=== PATIENT | female | born 1990 | race Hispanic/Latino ===

== ENCOUNTER 2018-04-28 09:43 | Emergency (ER) | payer SELFPAY ==
[2018-04-28] MEDS ORDERED: Ondansetron PF 4 MG/2 ML Vial ONE (09:58)
[2018-04-28] MEDS ORDERED: Ketorolac Tromethamine 30 MG/ML VIAL ONE (10:00)
[2018-04-28 10:26] LABS: Bilirubin Negative (Negative); Blood, Urine Small (Negative); Clarity Clear (Clear); Glucose, Urine (Dipstick) Negative (Negative); Leukocyte Negative (Negative); Nitrite Negative (Negative); Protein, Urine (Dipstick) 30 mg/dL (Neg-Trace); Urobilinogen 0.2 mg/dL (0.2-1.0); pH, Urine 6.5 (5.0-9.0)
[2018-04-28 10:27] LABS: Pregnancy Test - Urine (BHCG) Negative (Negative)
[2018-04-28 10:28] LABS: Pregu Control Background? CLEAR/WHITE (CLR/WHITE); Pregu Control Bar Appear? YES (CONTROL BAR)
[2018-04-28 10:36] LABS: Bacteria/HPF Rare-Few HPF (None Seen); RBC/HPF 0-3 HPF (0-3); Squamous Epithelial 0-3 HPF (0-3); WBC/HPF 0-3 HPF (0-3)
[2018-04-28 10:37] LABS: Other Microscopic Description NO
[2018-04-28 10:39] LABS: Anion Gap 13 mmol/L (10-20); BUN (Urea Nitrogen) 10 mg/dL (7.0-18.7); Calc. Creatinine Clearance 0 mL/min (70-130); Calcium 9.2 mg/dL (7.8-10.44); Carbon Dioxide 21 mmol/L (22-29); Chloride 107 mmol/L (98-107); Estimated GFR-MDRD Greater than 90; Glucose 133 mg/dL (70-105); Potassium 3.7 mmol/L (3.5-5.1); Sodium 137 mmol/L (136-145)
--- NOTE | 2018-04-28 10:58 | CT ---
CT STONE PROTOCOL: HISTORY: Left flank pain. FINDINGS: Absence of oral and IV contrast reduces the sensitivity of the exam, particularly for evaluation of s olid organs involved. The lung bases are clear. The patient is post cholecystectomy. No free air or free fluid is seen in the abdomen or pelvis. No calculi are seen in the kidneys, right ureter, or the urinary bladder. There is a 3 mm calculus i n the left ureteropelvic junction with mild left-sided hydronephrosis. Uterus and ovaries are present. A normal-appearing appendix is noted. There is no evidence of aneur ysmal dilatation of the abdominal aorta. No acute osseous abnormalities are seen. IMPRESSION: A 3 mm left ureteropelvic junction calculus with mild hydronephrosis. POS: C
== END 2018-04-28 11:07 | disposition home or self-care (01) ==
LOC: NAV ERS 09:43
DX: N13.2 Hydronephrosis with renal and ureteral calculous obstruction (principal); Z87.891 Personal history of nicotine dependence
CPT/HCPCS: 51701; 74176; 80048; 81003; 81015; 81025; 96361; 96374; 96375; A4353; J1885; J2405

== ENCOUNTER 2018-12-28 12:56 | Emergency (ER) | payer SELFPAY | END 2018-12-28 13:24 | disposition home or self-care (01) | LOC: NAV ERS 12:56 | DX: K02.9 Dental caries, unspecified (principal); F17.210 Nicotine dependence, cigarettes, uncomplicated; Z87.442 Personal history of urinary calculi | CPT/HCPCS: 99281 ==

== ENCOUNTER 2019-08-04 13:57 | Emergency (ER) | payer OTHER ==
[2019-08-05 15:04] LABS: SARS-CoV-2 MS2 Positive; SARS-CoV-2 N Gene Negative; SARS-CoV-2 S Gene Negative; SARS-CoV-2 orf1ab Negative
== END 2019-08-04 14:47 | disposition home or self-care (01) ==
LOC: NAV ERS 13:57
DX: B34.9 Viral infection, unspecified (principal); Z20.828 Contact with and (suspected) exposure to other viral communicable diseases; F41.9 Anxiety disorder, unspecified; Z87.891 Personal history of nicotine dependence
CPT/HCPCS: 87635; 99283; U0003

== ENCOUNTER 2020-05-25 07:40 | Emergency (ER) | payer OTHER, SELFPAY ==
[2020-05-25] MEDS ORDERED: HYDROcodone/Acetaminophen 5/325 mg Tablet ONE (08:06)
== END 2020-05-25 08:33 | disposition home or self-care (01) ==
LOC: NAV ERS 07:40
DX: H60.91 Unspecified otitis externa, right ear (principal); Z87.891 Personal history of nicotine dependence
CPT/HCPCS: 99282

== ENCOUNTER 2023-04-12 18:43 | Emergency (ER) | payer SELFPAY | END 2023-04-12 19:50 | disposition home or self-care (01) | LOC: NAV ERS 18:43 | DX: M25.442 Effusion, left hand (principal); M25.441 Effusion, right hand; Z87.891 Personal history of nicotine dependence | CPT/HCPCS: 99283 ==

== ENCOUNTER 2024-02-22 16:25 | Emergency (ER) | payer SELFPAY ==
[2024-02-22] MEDS ORDERED: Lidocaine 1% (PF) 30 ML VIAL ONE (16:56)
[2024-02-22] MEDS ORDERED: Ibuprofen 200 MG TAB ONE (16:59)
== END 2024-02-22 18:22 | disposition home or self-care (01) ==
LOC: NAV ERS 16:25
DX: S01.111A Laceration without foreign body of right eyelid and periocular area, initial encounter (principal); F17.290 Nicotine dependence, other tobacco product, uncomplicated; W01.198A Fall on same level from slipping, tripping and stumbling with subsequent striking against other object, initial encounter
CPT/HCPCS: 12011; 70450